=== PATIENT | female | born 1960 | race Hispanic/Latino ===

== ENCOUNTER 2016-07-14 10:53 | Observation (INO) | payer MEDICARE ==
--- NOTE | 2016-07-14 11:04 | ED PDOC ---
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 Had been observed in [facility] earlier this AM. Family also states that pt is on Fentanyl and Percocets.) - Chief Complaint Chief Complaint: Unresponsive - Onset Date: 07/14/16 Time: 10:00 Onset: Hours (1) - Timing Timing: Currently Symptomatic - Location Location: Difficult to localize - Radiation Radiation: None - Severity of pain Maximum severity:: Moderate Pain Scale:: 0 Severity Current: Moderate Pain Scale:: 0 - TPA Positive for Contraindication: Yes Reason tPA is not being Administered: No focal deficits, pt unresponsive, possible drug ingestion NIHSS Stroke Scale - How Severe is the Stroke Level of Consciousness: 1=Drowsy LOC to Questions: 2=Neither correct LOC to commands: 2=Neither correct Best Gaze: 0=Normal Visual: 0=No visual loss Facial: 0=Normal Motor Arm - Left: 0=No drift Motor Arm - Right: 0=No drift Motor Leg - Left: 0=No drift Motor Leg - Right: 0=No drift Limb Ataxia: 0=Absent Sensory: 0=Normal Best Language: 0=No aphasia Dysarthia: 1=Mild to moderate slurring Extinction & Inattention (Neglect): 0=Normal, no object Score: 6 rTPA Inclusion/Exclusion - Refusal of Treatment Patient Refused Treatment: No - Inclusion Criteria for Altepase Patient is 18 years or Older: Yes The Clinical Diagnosis of Ischemic Stroke That is Causing a Potentially Disabling Neurological Deficit: No Time of Onset is Well Established to be Less Than 270 Minute Before Treatment Would Begin: Yes Risk/Benefit Discussed With Patient/Family Member Present: Yes Past Medical History - Medical History PMH: Anxiety, Back Problems, Depression, Diabetes, HTN, Hyperlipidemia Denies: Chronic Kidney Disease - Family History Family History: States: Unknown Family Hx - Immunization History Hx Tetanus Toxoid Vaccination: No Hx Influenza Vaccination: Yes Hx Pneumococcal Vaccination: No - Home Medications Home Medications: Ambulatory Orders Medication Instructions Recorded DULoxetine [Cymbalta] 60 mg PO DAILY 09/03/15 Fenofibrate [Tricor] 135 mg PO DAILY 09/03/15 Gabapentin [Neurontin] 600 mg PO DAILY 09/03/15 MetFORMIN [glucOPHAGE] 1,000 mg PO DAILY 09/03/15 Mirtazapine [Remeron Soltab] 15 mg PO DAILY 09/03/15 Rosuvastatin Calcium 2.5 [Crestor] 2.5 mg PO BID 09/03/15 Buspirone HCl [Buspirone HCl] 15 mg PO BID 06/28/16 Celecoxib [CeleBREX] 100 mg PO BID 06/28/16 Esomeprazole Magnesium [Nexium] 40 mg PO DAILY 06/28/16 Fentanyl [Duragesic Patch] 1 patch TOP Q72 07/14/16 oxyCODONE/Acetaminophen [Percocet 2 tab PO PRN PRN 07/14/16 5/325 mg Tab] - Allergies Allergies/Adverse Reactions: Allergies Allergy/AdvReac Type Severity Reaction Status Date / Time No Known Allergies Allergy Verified 07/14/16 11:13 Review of Systems Review Of Systems: ROS cannot be obtained secondary to pt's inabilty to answer questions. Physical Exam - Physical Exam Appears: Positive for: Non-toxic, No Acute Distress Head Exam: Positive for: ATRAUMATIC, NORMAL INSPECTION, NORMOCEPHALIC Skin: Positive for: Normal Color, Warm, DRY Eye Exam: Positive for: EOMI, PERRL Neck: Positive for: Normal, Painless ROM Cardiovascular/Chest: Positive for: Regular Rate, Rhythm Respiratory: Positive for: CNT, Normal Breath Sounds Gastrointestinal/Abdominal: Positive for: Normal Exam, Bowel Sounds, Soft. Negative for: Tenderness Back: Positive for: Normal Inspection Extremity: Positive for: Normal ROM Neurologic/Psych: Negative for: Alert (lethargic, responds to painful stimuli), Motor/Sensory Deficits - Laboratory Results Result Diagrams: 07/14/16 11:21 07/14/16 11:21 Disposition - Clinical Impression Clinical Impression: Opioid overdose - Patient ED Disposition Is Patient to be Admitted: Yes - Disposition Disposition Time: 12:22 Condition: FAIR - Pt Status Changed To: Hospital Disposition Of: Observation - POA Present On Arrival: None
[2016-07-14 11:33] LABS: BASO # 0.1 K/uL (0.0-0.2); BASO % 0.5 % (0.0-2.0); EOS # 0.1 K/uL (0.0-0.7); EOS % 0.5 % (0.0-4.0); HEMATOCRIT 40.8 % (34.0-47.0); LYMPH # 2.4 K/uL (1.0-4.3); LYMPH % 14.5 % (20.0-40.0); MEAN CELL VOLUME 92.3 fl (81.0-99.0); MEAN CORPUSCULAR HGB CONC 32.5 g/dL (33.0-37.0); MEAN PLATELET VOLUME 9.3 fl (7.2-11.7); MONO # 0.9 K/uL (0.0-0.8); MONO % 5.6 % (0.0-10.0); NEUT # 13.1 K/uL (1.8-7.0); NEUT % 78.9 % (50.0-75.0); NRBC % 0.1 % (0.0-0.0); WHITE BLOOD COUNT 16.6 K/uL (4.8-10.8)
[2016-07-14 11:41] LABS: ALCOHOL SERUM < 10 mg/dl (0-10); ALKALINE PHOSPHATASE 87 U/L (38-126); ALT/SGPT 40 U/L (9-52); AST/SGOT 79 U/L (14-36); BILIRUBIN,TOTAL 0.5 mg/dl (0.2-1.3); BLOOD UREA NITROGEN 27 mg/dl (7-17); CALCIUM 9.7 mg/dL (8.4-10.2); CARBON DIOXIDE 24 mmol/L (22-30); CHLORIDE 106 mmol/L (98-107); CHOLESTEROL 228 mg/dL (0-199); GFR AFRICAN-AMERICAN 40; GLUCOSE,RANDOM 234 mg/dL (65-105); POTASSIUM 4.1 MMOL/L (3.6-5.0); SODIUM 147 mmol/l (132-148); TOTAL PROTEIN 7.5 G/DL (6.3-8.2)
--- NOTE | 2016-07-14 11:42 | CT ---
PROCEDURE: CT HEAD WITHOUT CONTRAST. HISTORY: code stroke COMPARISON: 06/28/2016 TECHNIQUE: Axial computed tomography images were obtained through the head/brain without intravenous contrast. Radiation dose: Total exam DLP = 938.35 mGy-cm. This CT exam was performed using one or more of the following dose reduction techniques: Automated exposure control, adjustment of the mA and/or kV according to patient size, and/or use of iterative reconstruction technique. FINDINGS: HEMORRHAGE: No intracranial hemorrhage. BRAIN: No mass effect or edema. No atrophy or chronic microvascular ischemic changes. VENTRICLES: Unremarkable. No hydrocephalus. CALVARIUM: Unremarkable. PARANASAL SINUSES: Chronic ethmoid and right maxillary sinusitis. Very small sphenoid retention cyst/polyp. MASTOID AIR CELLS: Unremarkable as visualized. No inflammatory changes. OTHER FINDINGS: None. IMPRESSION: No evidence of acute infarct. No intracranial hemorrhage. Chronic ethmoid and right maxillary sinusitis. Very small sphenoid retention cyst/polyp. The findings in this examination were discussed, by telephone, with Dr. Dickens at 11:37 a.m. on 07/14/2016.
[2016-07-14 11:46] LABS: PARTIAL THROMBOPLASTIN TIME 25.9 SECONDS (23.3-32.5)
--- NOTE | 2016-07-14 12:02 | RAD ---
HISTORY: unresponsive COMPARISON: 06/28/2016 FINDINGS: LUNGS: No active pulmonary disease. PLEURA: No significant pleural effusion identified, no pneumothorax apparent. CARDIOVASCULAR: Normal. OSSEOUS STRUCTURES: No significant abnormalities. VISUALIZED UPPER ABDOMEN: Normal. OTHER FINDINGS: None. IMPRESSION: No active disease.
[2016-07-14] MEDS ORDERED: Naloxone 0.4 mg/ml Inj (Adult) IVP STA (12:22)
[2016-07-14] MEDS ORDERED: Naloxone 0.4 mg/ml Inj (Adult) ONE (12:42)
--- NOTE | 2016-07-14 13:38 | CP.PCM.HP ---
History of Present Illness - History of Present Illness History of Present Illness: 56 y/o F with HTN, DM with peripheral neuropathy, GERD, Hyperlipidemia, Depression, chronic back pain admitted for opioid overdose. Found unresponsive on floor 1hr [employer] ED. Had been observed in normal state of health earlier this AM by son. Pt is on Fentanyl and Percocets as per sister. Living with her son who is a heroin user( s/p detox at [facility]), patient also has an ex partner who is a enrolled in a methadone clinic and is currently homeless butcomes to her apartment intermittently as per sister. Sister accusing pt's son of stealing patient's fentanyl patches. In the Field: found 'pulseless' and unresponsive , chest compressions, given narcan x 1 dose, regained pulse ED course: Responsive to painful stimuli, given narcan x 1, more alert and awake , answering questions, VS stable, O2 sat 98% on 100% non rebreather mask. PCP: Dr Jeff Mcadams Mgmnt: Dr. Vega (dougherty) PMHx: HTN, DM with peripheral neuropathy, GERD, Hyperlipidemia, Depression, Breast Cancer s/p right mastectomy 20 years ago Allergies: NKDA Meds: DULoxetine [Cymbalta] 60 mg PO Dicyclomine [Dicyclomine HCl] 10 mg PO Fenofibrate [Tricor] 135 mg PO DAILY Gabapentin [Neurontin] 600 mg PO DAILY MetFORMIN [glucOPHAGE] 1,000 mg PO DAILY Mirtazapine [Remeron Soltab] 15 mg PO DAILY Ondansetron [Zofran] 4 mg PO Q6H PRN #10 tab Rosuvastatin Calcium 2.5 [Crestor] 2.5 mg PO BID oxyCODONE/Acetaminophen 325 mg PO PRN PRN Percocet 5-325 mg HALF TAB] Famotidine [Pepcid] 20 mg PO BID #28 tab Naloxegol Oxalate [Movantik] 25 mg PO PSurgHx: R breast "mastectomy" 20 years ago, ingrown toenails PSHx: Smoker 1 PPD x 27 years. neg ETOH, heroin/benzo /methadone use?. Living with her son who is a heroin user( s/p detox at [facility]). Patient also has an ex partner who is a enrolled in a methadone clinic and is currently homeless butcomes to her apartment intermittently as per sister. Present on Admission - Present on Admission Any Indicators Present on Admission: No Review of Systems - Review of Systems Review of Systems: see hpi Past Patient History - Infectious Disease Hx of Infectious Diseases: None - Past Medical History & Family History Past Medical History?: Yes - Past Social History Smoking Status: 1/2 PPD - CARDIAC Hx Cardiac Disorders: Yes (HTN,HLD) - PULMONARY Hx Respiratory Disorders: No - NEUROLOGICAL Hx Neurological Disorder: No - HEENT Hx HEENT Problems: No - RENAL Hx Chronic Kidney Disease: No - ENDOCRINE/METABOLIC Hx Endocrine Disorders: Yes (DM) - HEMATOLOGICAL/ONCOLOGICAL Hx Blood Disorders: No - INTEGUMENTARY Hx Dermatological Problems: No - MUSCULOSKELETAL/RHEUMATOLOGICAL Hx Musculoskeletal Disorders: Yes (CHRONIC BACK PROB) - GASTROINTESTINAL Hx Gastrointestinal Disorders: No - GENITOURINARY/GYNECOLOGICAL Hx Genitourinary Disorders: No - PSYCHIATRIC Hx Psychophysiologic Disorder: Yes (ANX, DEP) - SURGICAL HISTORY Hx Surgeries: Yes Other/Comment: tubal ligation, lumpectomy. - ANESTHESIA Hx Anesthesia: Yes Hx Anesthesia Reactions: No Meds Allergies/Adverse Reactions: Allergies Allergy/AdvReac Type Severity Reaction Status Date / Time No Known Allergies Allergy Verified 07/14/16 11:13 Physical Exam - Constitutional Additional comments: lethargic, responsive to light touch and voice - Head Exam Head Exam: NORMOCEPHALIC - Eye Exam Eye Exam: EOMI. absent: Conjunctival injection, Periorbital swelling, Scleral icterus Additional comments: pinpoint pupils 0.5 mm, sluggish bilaterally - ENT Exam ENT Exam: Mucous Membranes Moist - Neck Exam Neck exam: Positive for: Full Rom - Respiratory Exam Respiratory Exam: Decreased Breath Sounds, Clear to Auscultation Bilateral Additional comments: taking shallow breaths due to opiate use - Cardiovascular Exam Cardiovascular Exam: +S1, +S2 - GI/Abdominal Exam GI & Abdominal Exam: Soft. absent: Distended, Firm, Guarding, Rigid, Tenderness - Extremities Exam Extremities exam: Positive for: normal inspection. Negative for: pedal edema - Neurological Exam Neurological exam: Altered Additional comments: drowsy but oriented to place, time and self - Psychiatric Exam Additional comments: oriented to place, time and self - Skin Skin Exam: Dry, Intact, Pallor Results - Vital Signs Recent Vital Signs: Last Vital Signs Temp 98.5 F 07/14/16 11:36 Pulse 104 H 07/14/16 13:17 Resp 20 07/14/16 13:17 BP 123/83 07/14/16 13:17 Pulse Ox 99 07/14/16 13:16 - Labs Result Diagrams: 07/14/16 11:21 07/14/16 11:21 Labs: Laboratory Results - last 24 hr 07/14/16 13:00 Urine Opiates Screen Positive H Urine Methadone Screen Negative Ur Barbiturates Screen Negative Ur Phencyclidine Scrn Negative Ur Amphetamines Screen Negative U Benzodiazepines Scrn Positive H U Oth Cocaine Metabols Negative U Cannabinoids Screen Negative Assessment & Plan - Assessment and Plan (Free Text) Plan: 56 y/o F with DM with peripheral neuropathy, GERD, Hyperlipidemia, Depression, chronic back pain admitted for opioid overdose. Found unresponsive on floor 1hr [employer] ED. Had been observed in normal state of health earlier this AM by son. Opioid Overdose In the Field: found 'pulseless' and unresponsive , chest compressions, given narcan x 1 dose, regained pulse ED course: Responsive to painful stimuli, given narcan x 1, more alert and awake , answering questions, VS stable, O2 sat 98% on 100% non rebreather mask. 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
[2016-07-14] MEDS: Dextrose 5%/0.45% NS 1,000 ML IV SCH ×2 (14:46→22:00)
[2016-07-14] MEDS: Insulin Lispro (humaLOG) 100 Units/ml Inj SC SCH (17:25)
[2016-07-15 04:52] LABS: HEMATOCRIT 38.7 % (34.0-47.0); MEAN CELL VOLUME 91.9 fl (81.0-99.0); MEAN CORPUSCULAR HEMOGLOBIN 29.4 pg (27.0-31.0); RED CELL DISTRIBUTION WIDTH 14.4 % (11.5-14.5)
[2016-07-15 05:17] LABS: ALKALINE PHOSPHATASE 67 U/L (38-126); ALT/SGPT 27 U/L (9-52); AST/SGOT 48 U/L (14-36); BILIRUBIN,TOTAL 0.8 mg/dl (0.2-1.3); BLOOD UREA NITROGEN 13 mg/dl (7-17); CALCIUM 8.2 mg/dL (8.4-10.2); CARBON DIOXIDE 24 mmol/L (22-30); CHLORIDE 103 mmol/L (98-107); GFR AFRICAN-AMERICAN > 60; POTASSIUM 3.6 MMOL/L (3.6-5.0); SODIUM 139 mmol/l (132-148); TOTAL PROTEIN 6.2 G/DL (6.3-8.2)
[2016-07-15 05:21] LABS: ALB/GLOB RATIO 1.1 (1.0-2.1); GLUCOSE,RANDOM 619 mg/dL (65-105)
[2016-07-15] MEDS ORDERED: Sodium Chloride 0.9% 1,000 ML IV SCH (06:30)
[2016-07-15 06:32] LABS: BLOOD UREA NITROGEN 14 mg/dl (7-17); CALCIUM 9.5 mg/dL (8.4-10.2); CARBON DIOXIDE 24 mmol/L (22-30); CHLORIDE 108 mmol/L (98-107); GFR AFRICAN-AMERICAN > 60; GLUCOSE,RANDOM 225 mg/dL (65-105); POTASSIUM 3.9 MMOL/L (3.6-5.0); SODIUM 146 mmol/l (132-148)
[2016-07-15 07:37] LABS: BASO # 0.1 K/uL (0.0-0.2); BASO % 0.6 % (0.0-2.0); EOS # 0.1 K/uL (0.0-0.7); EOS % 0.4 % (0.0-4.0); HEMATOCRIT 40.4 % (34.0-47.0); LYMPH # 1.9 K/uL (1.0-4.3); LYMPH % 15.2 % (20.0-40.0); MEAN CELL VOLUME 90.7 fl (81.0-99.0); MEAN CORPUSCULAR HEMOGLOBIN 30.1 pg (27.0-31.0); MEAN CORPUSCULAR HGB CONC 33.2 g/dL (33.0-37.0); MEAN PLATELET VOLUME 10.4 fl (7.2-11.7); MONO # 0.7 K/uL (0.0-0.8); MONO % 5.9 % (0.0-10.0); NEUT # 9.7 K/uL (1.8-7.0); NEUT % 77.9 % (50.0-75.0); NRBC % 0.1 % (0.0-0.0); RED CELL DISTRIBUTION WIDTH 14.7 % (11.5-14.5); WHITE BLOOD COUNT 12.5 K/uL (4.8-10.8)
[2016-07-15] MEDS: Insulin Lispro (humaLOG) 100 Units/ml Inj SC SCH (08:41)
--- NOTE | 2016-07-15 08:42 | CARD ---
APPROVED REPORT EKG Measurement Heart [id number] <Conclusion> Sinus tachycardia Otherwise normal ECG
[2016-07-15 08:57] VITALS: TEMP 98.4
[2016-07-15 11:00] VITALS: BP 151/91; PULSE 110; RESP 24; O2SAT 93
--- NOTE | 2016-07-15 13:49 | CP.PCM.DIS ---
<John Christopher - Last Filed: 07/15/16 13:42> Provider - Provider Date of Admission: 07/14/16 12:20 Attending physician: Chico Reinoso MD Time Spent in preparation of Discharge (in minutes): 30 Diagnosis - Discharge Diagnosis (1) Opioid overdose Status: Acute Hospital Course - Lab Results Lab Results: Most Recent Lab Values WBC 12.5 K/uL (4.8-10.8) H 07/15/16 05:24 RBC 4.45 Mil/uL (3.80-5.20) 07/15/16 05:24 Hgb 13.4 g/dL (12.0-16.0) 07/15/16 05:24 Hct 40.4 % (34.0-47.0) 07/15/16 05:24 MCV 90.7 fl (81.0-99.0) 07/15/16 05:24 MCH 30.1 pg (27.0-31.0) 07/15/16 05:24 MCHC 33.2 g/dL (33.0-37.0) 07/15/16 05:24 RDW 14.7 % (11.5-14.5) H 07/15/16 05:24 Plt Count 177 K/uL (130-400) 07/15/16 05:24 MPV 10.4 fl (7.2-11.7) 07/15/16 05:24 Neut % (Auto) 77.9 % (50.0-75.0) H 07/15/16 05:24 Lymph % (Auto) 15.2 % (20.0-40.0) L 07/15/16 05:24 [place] % (Auto) 5.9 % (0.0-10.0) 07/15/16 05:24 Eos % (Auto) 0.4 % (0.0-4.0) 07/15/16 05:24 Baso % (Auto) 0.6 % (0.0-2.0) 07/15/16 05:24 Neut # 9.7 K/uL (1.8-7.0) H 07/15/16 05:24 Lymph # 1.9 K/uL (1.0-4.3) 07/15/16 05:24 [place] # 0.7 K/uL (0.0-0.8) 07/15/16 05:24 Eos # 0.1 K/uL (0.0-0.7) 07/15/16 05:24 Baso # 0.1 K/uL (0.0-0.2) 07/15/16 05:24 PT 11.5 SECONDS (9.6-11.2) H 07/14/16 11:21 INR 1.11 (0.92-1.08) H 07/14/16 11:21 APTT 25.9 SECONDS (23.3-32.5) 07/14/16 11:21 Sodium 146 mmol/l (132-148) 07/15/16 05:24 Potassium 3.9 MMOL/L (3.6-5.0) 07/15/16 05:24 Chloride 108 mmol/L (98-107) H 07/15/16 05:24 Carbon Dioxide 24 mmol/L (22-30) 07/15/16 05:24 Anion Gap 18 (10-20) 07/15/16 05:24 BUN 14 mg/dl (7-17) 07/15/16 05:24 Creatinine 0.8 mg/dL (0.7-1.2) 07/15/16 05:24 Est GFR ( Amer) > 60 07/15/16 05:24 Est GFR (Non-Af Amer) > 60 07/15/16 05:24 POC Glucose (mg/dL) 179 mg/dL (65-110) H 07/15/16 01:51 Random Glucose 225 mg/dL (65-105) H 07/15/16 05:24 Hemoglobin A1c 9.1 % (4.2-6.5) H 07/14/16 11:21 Calcium 9.5 mg/dL (8.4-10.2) 07/15/16 05:24 Total Bilirubin 0.8 mg/dl (0.2-1.3) 07/15/16 04:35 AST 48 U/L (14-36) H D 07/15/16 04:35 ALT 27 U/L (9-52) 07/15/16 04:35 Alkaline Phosphatase 67 U/L (38-126) 07/15/16 04:35 Troponin I 0.0160 ng/mL (0.00-0.120) 07/15/16 05:24 Total Protein 6.2 G/DL (6.3-8.2) L 07/15/16 04:35 Albumin 3.2 g/dL (3.5-5.0) L 07/15/16 04:35 Globulin 3.0 gm/dL (2.2-3.9) 07/15/16 04:35 Albumin/Globulin Ratio 1.1 (1.0-2.1) 07/15/16 04:35 Triglycerides 519 mg/DL (0-149) H 07/14/16 11:21 Cholesterol 228 mg/dL (0-199) H 07/14/16 11:21 LDL Cholesterol Direct 98 mg/dL (0-129) 07/14/16 11:21 HDL Cholesterol 30 MG/DL (30-70) 07/14/16 11:21 Salicylates < 1.0 mg/dl 07/14/16 14:00 Urine Opiates Screen Positive (NEGATIVE) H 07/14/16 13:00 Urine Methadone Screen Negative (NEGATIVE) 07/14/16 13:00 Acetaminophen < 10.0 ug/ml (10.0-30.0) L 07/14/16 14:00 Ur Barbiturates Screen Negative (NEGATIVE) 07/14/16 13:00 Ur Phencyclidine Scrn Negative (NEGATIVE) 07/14/16 13:00 Ur Amphetamines Screen Negative (NEGATIVE) 07/14/16 13:00 U Benzodiazepines Scrn Positive (NEGATIVE) H 07/14/16 13:00 U Oth Cocaine Metabols Negative (NEGATIVE) 07/14/16 13:00 U Cannabinoids Screen Negative (NEGATIVE) 07/14/16 13:00 Alcohol, Quantitative < 10 mg/dl (0-10) 07/14/16 11:21 Blood Type B POSITIVE 07/14/16 11:21 Antibody Screen Negative 07/14/16 11:21 BBK History Checked Patient has bt 07/14/16 11:21 - Hospital Course Hospital Course: The patient is a 56 y/o woman with HTN, DM with peripheral neuropathy, GERD, Hyperlipidemia, Depression, chronic back pain admitted for opioid overdose. 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 Had been observed in normal state of health earlier this AM by son. Pt is on Fentanyl and Percocets as per sister. Living with her son who is a heroin user( s/p detox at [facility]), patient also has an ex partner who is a enrolled in a methadone clinic and is currently homeless butcomes to her apartment intermittently as per sister. In the Field: found 'pulseless' and unresponsive , chest compressions, given narcan x 1 dose, regained pulse ED course: Responsive to painful stimuli, given narcan x 1, more alert and awake , answering questions, VS stable, O2 sat 98% on 100% non rebreather mask. Patient drug screen was positive for opioids and benzodiazepines. Patient given home medications except oipioids. Patient had Head CT and CXR which were normal. EKG showed sinus tachycardia with repeat EKG being normal. Troponins were negative and rest of labs were normal for her baseline. Blood sugar was found to be in 600s in price economist but was due to blood drawn above IV where patient was receiving D5, repeat glucose was 200s. Patient was AAOx3 upon examination and clinically improved. Patient has been seen, examined,a nd deemed medically fit with no contraindication for discharge home. Patient is to follow up with Dr. Reinoso and Dr. Vega. - Date & Time of H&P Date of H&P: 07/14/16 Time of H&P: 13:37 Discharge Exam - Head Exam Head Exam: ATRAUMATIC, NORMOCEPHALIC - Eye Exam Eye Exam: EOMI Pupil Exam: PERRL - ENT Exam ENT Exam: Mucous Membranes Moist - Respiratory Exam Respiratory Exam: Chest Wall Tenderness, Clear to PA & Lateral. absent: Accessory Muscle Use, Decreased Breath Sounds, Prolonged Expiratory Phase, Rales , Rhonchi, Wheezes, Respiratory Distress, Stridor Additional comments: s/p chest compressions - Cardiovascular Exam Cardiovascular Exam: REGULAR RHYTHM, RRR. absent: Tachycardia - GI/Abdominal Exam GI & Abdominal Exam: Normal Bowel Sounds, Soft. absent: Distended, Tenderness - Neurological Exam Neurological exam: Alert, Normal Gait, Oriented x3 - Skin Skin Exam: Dry, Intact, Normal Color, Warm Discharge Plan - Follow Up Plan Condition: FAIR Disposition: HOME/ ROUTINE Referrals: Chico Reinoso MD [Staff Provider] - Walker Vega MD [Medical Doctor] - <Chico Reinoso - Last Filed: 07/16/16 07:00> Provider - Provider Date of Admission: 07/14/16 12:20 Attending physician: Chico Reinoso MD [facility] Course - Lab Results Lab Results: Most Recent Lab Values WBC 12.5 K/uL (4.8-10.8) H 07/15/16 05:24 RBC 4.45 Mil/uL (3.80-5.20) 07/15/16 05:24 Hgb 13.4 g/dL (12.0-16.0) 07/15/16 05:24 Hct 40.4 % (34.0-47.0) 07/15/16 05:24 MCV 90.7 fl (81.0-99.0) 07/15/16 05:24 MCH 30.1 pg (27.0-31.0) 07/15/16 05:24 MCHC 33.2 g/dL (33.0-37.0) 07/15/16 05:24 RDW 14.7 % (11.5-14.5) H 07/15/16 05:24 Plt Count 177 K/uL (130-400) 07/15/16 05:24 MPV 10.4 fl (7.2-11.7) 07/15/16 05:24 Neut % (Auto) 77.9 % (50.0-75.0) H 07/15/16 05:24 Lymph % (Auto) 15.2 % (20.0-40.0) L 07/15/16 05:24 [place] % (Auto) 5.9 % (0.0-10.0) 07/15/16 05:24 Eos % (Auto) 0.4 % (0.0-4.0) 07/15/16 05:24 Baso % (Auto) 0.6 % (0.0-2.0) 07/15/16 05:24 Neut # 9.7 K/uL (1.8-7.0) H 07/15/16 05:24 Lymph # 1.9 K/uL (1.0-4.3) 07/15/16 05:24 [place] # 0.7 K/uL (0.0-0.8) 07/15/16 05:24 Eos # 0.1 K/uL (0.0-0.7) 07/15/16 05:24 Baso # 0.1 K/uL (0.0-0.2) 07/15/16 05:24 PT 11.5 SECONDS (9.6-11.2) H 07/14/16 11:21 INR 1.11 (0.92-1.08) H 07/14/16 11:21 APTT 25.9 SECONDS (23.3-32.5) 07/14/16 11:21 Sodium 146 mmol/l (132-148) 07/15/16 05:24 Potassium 3.9 MMOL/L (3.6-5.0) 07/15/16 05:24 Chloride 108 mmol/L (98-107) H 07/15/16 05:24 Carbon Dioxide 24 mmol/L (22-30) 07/15/16 05:24 Anion Gap 18 (10-20) 07/15/16 05:24 BUN 14 mg/dl (7-17) 07/15/16 05:24 Creatinine 0.8 mg/dL (0.7-1.2) 07/15/16 05:24 Est GFR ( Amer) > 60 07/15/16 05:24 Est GFR (Non-Af Amer) > 60 07/15/16 05:24 POC Glucose (mg/dL) 179 mg/dL (65-110) H 07/15/16 01:51 Random Glucose 225 mg/dL (65-105) H 07/15/16 05:24 Hemoglobin A1c 9.1 % (4.2-6.5) H 07/14/16 11:21 Calcium 9.5 mg/dL (8.4-10.2) 07/15/16 05:24 Total Bilirubin 0.8 mg/dl (0.2-1.3) 07/15/16 04:35 AST 48 U/L (14-36) H D 07/15/16 04:35 ALT 27 U/L (9-52) 07/15/16 04:35 Alkaline Phosphatase 67 U/L (38-126) 07/15/16 04:35 Troponin I 0.0160 ng/mL (0.00-0.120) 07/15/16 05:24 Total Protein 6.2 G/DL (6.3-8.2) L 07/15/16 04:35 Albumin 3.2 g/dL (3.5-5.0) L 07/15/16 04:35 Globulin 3.0 gm/dL (2.2-3.9) 07/15/16 04:35 Albumin/Globulin Ratio 1.1 (1.0-2.1) 07/15/16 04:35 Triglycerides 519 mg/DL (0-149) H 07/14/16 11:21 Cholesterol 228 mg/dL (0-199) H 07/14/16 11:21 LDL Cholesterol Direct 98 mg/dL (0-129) 07/14/16 11:21 HDL Cholesterol 30 MG/DL (30-70) 07/14/16 11:21 Salicylates < 1.0 mg/dl 07/14/16 14:00 Urine Opiates Screen Positive (NEGATIVE) H 07/14/16 13:00 Urine Methadone Screen Negative (NEGATIVE) 07/14/16 13:00 Acetaminophen < 10.0 ug/ml (10.0-30.0) L 07/14/16 14:00 Ur Barbiturates Screen Negative (NEGATIVE) 07/14/16 13:00 Ur Phencyclidine Scrn Negative (NEGATIVE) 07/14/16 13:00 Ur Amphetamines Screen Negative (NEGATIVE) 07/14/16 13:00 U Benzodiazepines Scrn Positive (NEGATIVE) H 07/14/16 13:00 U Oth Cocaine Metabols Negative (NEGATIVE) 07/14/16 13:00 U Cannabinoids Screen Negative (NEGATIVE) 07/14/16 13:00 Alcohol, Quantitative < 10 mg/dl (0-10) 07/14/16 11:21 Blood Type B POSITIVE 07/14/16 11:21 Antibody Screen Negative 07/14/16 11:21 BBK History Checked Patient has bt 07/14/16 11:21 Attending/Attestation - Attestation I have personally seen and examined this patient.: Yes I have fully participated in the care of the patient.: Yes I have reviewed all pertinent clinical information, including history, physical exam and plan: Yes
--- NOTE | 2016-07-15 16:21 | CARD ---
APPROVED REPORT EKG Measurement Heart [id number] <Conclusion> Normal sinus rhythm Normal ECG
== END 2016-07-15 13:00 | disposition home or self-care (01) ==
LOC: H.ER 10:53 → H.ERHOLD 12:20 → H.ICU/CCU 13:35
PROVIDERS: ADMIT Family Medicine; ATTEND Family Medicine
DX: T40.2X1A Poisoning by other opioids, accidental (unintentional), initial encounter (principal); Y92.9 Unspecified place or not applicable; E11.42 Type 2 diabetes mellitus with diabetic polyneuropathy; E78.5 Hyperlipidemia, unspecified; F32.9 Major depressive disorder, single episode, unspecified; I10 Essential (primary) hypertension; K21.9 Gastro-esophageal reflux disease without esophagitis; Z59.0 Homelessness; Z85.3 Personal history of malignant neoplasm of breast; G89.29 Other chronic pain; M54.9 Dorsalgia, unspecified; F17.210 Nicotine dependence, cigarettes, uncomplicated
CPT/HCPCS: 70450; 71010; 80048; 80053; 80061; 82948; 83036; 84484; 85025; 85027; 85610; 85730; 86850; 86900; 87081; 93005; 96374; 99285; C9113; G0378; G0480; J1885; J2310; J2405; J7040; J7042

== ENCOUNTER 2016-09-27 13:00 | Emergency (ER) | payer MEDICARE ==
[2016-09-27 13:09] VITALS: BP 111/69; PULSE 115; RESP 20; TEMP 98; O2SAT 98
[2016-09-27] MEDS ORDERED: Sodium Chloride 0.9% 1,000 ML IV STA (13:43)
--- NOTE | 2016-09-27 13:46 | ED PDOC ---
Upper Extremity Pain/Injury Time Seen by Provider: 09/27/16 13:42 Chief Complaint (Nursing): Upper Extremity Problem/Injury Chief Complaint (Provider): right shoulder pain History Per: Patient Additional Complaint(s): 56-year-old female presents to emergency Department with pain to right shoulder that started 5 days ago. Patient denies any trauma or injury. She states pain radiates into the right chest wall on occasion but she denies any shortness of breath or dyspnea on exertion. Patient had lumpectomy from right breast 25 years ago but denies history of chronic pain since that procedure. She denies fever or chills, no associated coughing. Patient has history of chronic knee and back pain and takes fentanyl patch 100 g every 3 days and Percocet daily but she states this has not helped her pain. She has also tried ibuprofen but this has not helped. Past Medical History Reviewed: Historical Data, Nursing Documentation, Vital Signs Vital Signs: Last Vital Signs Temp 98 F 09/27/16 13:07 Pulse 115 H 09/27/16 13:07 Resp 20 09/27/16 13:07 BP 111/69 09/27/16 13:07 Pulse Ox 98 09/27/16 13:07 - Medical History PMH: Anxiety, Back Problems, Depression, Diabetes, Emphysema, HTN, Hypercholesterolemia, Hyperlipidemia - Surgical History Other surgeries: right lumpectomy - Family History Family History: States: No Known Family Hx - Living Arrangements Living Arrangements: With Family - Social History Current smoker - smoking cessation education provided: Yes Alcohol: None Drugs: Denies - Home Medications Home Medications: Ambulatory Orders Medication Instructions Recorded DULoxetine [Cymbalta] 60 mg PO DAILY 09/03/15 Fenofibrate [Tricor] 135 mg PO DAILY 09/03/15 Gabapentin [Neurontin] 600 mg PO DAILY 09/03/15 MetFORMIN [glucoPHAGE] 1,000 mg PO DAILY 09/03/15 Mirtazapine [Remeron] 15 mg PO DAILY 09/03/15 Rosuvastatin Calcium 2.5 [Crestor] 2.5 mg PO BID 09/03/15 Buspirone HCl 15 mg PO BID 06/28/16 Celecoxib [celeBREX] 100 mg PO BID 06/28/16 Esomeprazole Magnesium [Nexium] 40 mg PO DAILY 06/28/16 Ibuprofen [Motrin Tab] 800 mg PO Q8 PRN #30 tab 09/27/16 Levofloxacin [Levaquin] 500 mg PO DAILY #7 tablet 09/27/16 Lidocaine 5% [Lidoderm] 1 ea TD DAILY #30 patch 09/27/16 Prednisone 50 mg PO DAILY #5 tablet 09/27/16 - Allergies Allergies/Adverse Reactions: Allergies Allergy/AdvReac Type Severity Reaction Status Date / Time No Known Allergies Allergy Verified 07/14/16 11:13 Review of Systems ROS Statement: Except As Marked, All Systems Reviewed And Found Negative Constitutional: Negative for: Fever, Chills Cardiovascular: Positive for: Chest Pain (right side, radiating from right shoulder) Respiratory: Negative for: Cough, Shortness of Breath, SOB with Exertion Gastrointestinal: Negative for: Nausea, Vomiting Neurological: Negative for: Weakness, Numbness, Headache, Dizziness Physical Exam - Reviewed Nursing Documentation Reviewed: Yes Vital Signs Reviewed: Yes - Physical Exam Appears: Positive for: Well, Non-toxic, No Acute Distress Head Exam: Positive for: ATRAUMATIC, NORMAL INSPECTION, NORMOCEPHALIC Skin: Negative for: Rash Eye Exam: Positive for: Normal appearance Neck: Positive for: Normal, Painless ROM Cardiovascular/Chest: Positive for: Regular Rate, Rhythm Respiratory: Positive for: Normal Breath Sounds. Negative for: Respiratory Distress Back: Negative for: Vertebral Tenderness Extremity: Positive for: Other (Diffuse tenderness right shoulder region with decreased range of motion, full range of motion of the right elbow, wrist and all digits right hand, strong right handgrip, normal capillary refill, no unilateral swelling noted to the right upper extremity) Neurologic/Psych: Positive for: Alert, Oriented - Laboratory Results Result Diagrams: 09/27/16 13:54 09/27/16 13:54 - ECG Interpretation Of ECG: Sinus tach 105 bpm, no acute finding, reviewed by PA and ED attending. O2 Sat by Pulse Oximetry: 98 Pulse Ox Interpretation: Normal - Other Rad Right shoulder x-ray X-Ray: Interpreted by Me, Viewed By Me X-Ray Interpretation: no fx, no dis CXR X-Ray: Interpreted by Me, Viewed By Me X-Ray Interpretation: see below Medical Decision Making Medical Decision Makin56 year old with right arm pain for 5 days, no history of trauma. Plan: CBC CMP Trop CXR R shoulder x-ray IV toradol IV solumedrol IVF EKG CXR: IMPRESSION: Subtle patchy nodular opacities at the lung bases may infiltrates or reflect artifactual appearance due to confluence of shadows ; pulmonary nodules cannot be entirely excluded. Correlate clinically. CT of the chest may be considered for further evaluation if indicated. Cardiomegaly. Patient states that shoulder pain is markedly improved after meds given in ED. Patient now able to lift right arm over her head which she could not do before. Patient is aware of all diagnostic test results, all questions answered. Patient given prescriptions for prednisone, Motrin and Lidoderm patch. Patient also given prescription for Levaquin to cover possible pneumonia according to above chest x-ray report. Copy of the chest x-ray report given to patient to bring to primary doctor for further evaluation. Patient was also instructed to follow up with her pain management physician Disposition - Clinical Impression Clinical Impression: Shoulder pain, Pneumonia - Patient ED Disposition Is Patient to be Admitted: No Counseled Patient/Family Regarding: Studies Performed, Diagnosis, Need For Followup, Rx Given - Disposition Referrals: Chico Reinoso MD [Staff Provider] - Disposition: Routine/Home Disposition Time: 15:25 Condition: IMPROVED Additional Instructions: Take prescription medications as directed. While taking prednisone monitor glucose levels at home and if glucose is higher than normal, take extra dose of metformin on those days. Ice right shoulder as much as possible. Follow-up next week with primary doctor, breathing chest x-ray report with you during follow-up visit to discuss with primary doctor possible need for further imaging. Return to emergency department if acutely worse at any time. Prescriptions: Ibuprofen [Motrin Tab] 800 mg PO Q8 PRN #30 tab PRN Reason: Pain, Moderate (4-7) Levofloxacin [Levaquin] 500 mg PO DAILY #7 tablet Lidocaine 5% [Lidoderm] 1 ea TD DAILY #30 patch Prednisone 50 mg PO DAILY #5 tablet Instructions: Community Acquired Pneumonia (ED), Shoulder Pain (ED) Results - Lab Results Lab Results: 09/27/16 09/27/16 13:54 13:54 WBC 10.4 RBC 5.02 Hgb 14.3 Hct 44.0 MCV 87.7 D MCH 28.4 MCHC 32.4 L RDW 15.8 H Plt Count 234 MPV 8.9 Neut % (Auto) 56.0 Lymph % (Auto) 35.8 Harrison % (Auto) 4.5 Eos % (Auto) 2.5 Baso % (Auto) 1.2 Neut # 5.8 Lymph # 3.7 Harrison # 0.5 Eos # 0.3 Baso # 0.1 Sodium 143 Potassium 4.5 Chloride 108 H Carbon Dioxide 23 Anion Gap 17 BUN 18 H Creatinine 1.0 Est GFR ( Amer) > 60 Est GFR (Non-Af Amer) 57 Random Glucose 130 H Calcium 9.6 Total Bilirubin 0.4 AST 19 ALT 16 Alkaline Phosphatase 87 Troponin I < 0.0120 Total Protein 8.1 Albumin 4.4 Globulin 3.7 Albumin/Globulin Ratio 1.2
[2016-09-27 14:11] LABS: BASO # 0.1 K/uL (0.0-0.2); BASO % 1.2 % (0.0-2.0); EOS # 0.3 K/uL (0.0-0.7); EOS % 2.5 % (0.0-4.0); LYMPH # 3.7 K/uL (1.0-4.3); LYMPH % 35.8 % (20.0-40.0); MEAN CELL VOLUME 87.7 fl (81.0-99.0); MEAN CORPUSCULAR HEMOGLOBIN 28.4 pg (27.0-31.0); MEAN CORPUSCULAR HGB CONC 32.4 g/dL (33.0-37.0); MEAN PLATELET VOLUME 8.9 fl (7.2-11.7); MONO # 0.5 K/uL (0.0-0.8); MONO % 4.5 % (0.0-10.0); NEUT # 5.8 K/uL (1.8-7.0); NRBC % 0.1 % (0.0-0.0); RED CELL DISTRIBUTION WIDTH 15.8 % (11.5-14.5); WHITE BLOOD COUNT 10.4 K/uL (4.8-10.8)
[2016-09-27 14:14] LABS: ALB/GLOB RATIO 1.2 (1.0-2.1); ALKALINE PHOSPHATASE 87 U/L (38-126); ALT/SGPT 16 U/L (9-52); AST/SGOT 19 U/L (14-36); BILIRUBIN,TOTAL 0.4 mg/dl (0.2-1.3); BLOOD UREA NITROGEN 18 mg/dl (7-17); CALCIUM 9.6 mg/dL (8.4-10.2); CARBON DIOXIDE 23 mmol/L (22-30); CHLORIDE 108 mmol/L (98-107); GFR AFRICAN-AMERICAN > 60; GLUCOSE,RANDOM 130 mg/dL (65-105); POTASSIUM 4.5 MMOL/L (3.6-5.0); SODIUM 143 mmol/l (132-148); TOTAL PROTEIN 8.1 G/DL (6.3-8.2)
--- NOTE | 2016-09-27 15:08 | RAD ---
PROCEDURE: Radiographs of the Right Shoulder HISTORY: pain for 5 days COMPARISON: None available FINDINGS: BONES: No acute displaced fracture. The distal clavicle and underlying ribs appear intact. JOINTS: No acute dislocation. SOFT TISSUES: Soft tissues appear unremarkable. Right axillary clips. IMPRESSION: No acute displaced fracture or dislocation evident. If symptoms persist or if there is continued clinical concern, x-ray follow-up in 7-10 days should be considered.
--- NOTE | 2016-09-27 15:11 | RAD ---
HISTORY: pain COMPARISON: Chest x-ray performed 07/14/16 TECHNIQUE: Chest PA and lateral FINDINGS: Examination limited by habitus. LUNGS: No focal consolidation. Biapical pleural thickening. Subtle patchy nodular opacities at the lung bases may infiltrates or reflect artifactual appearance due to confluence of shadows ; pulmonary nodules cannot be entirely excluded. Please note that chest x-ray has limited sensitivity for the detection of pulmonary masses. PLEURA: No significant pleural effusion identified. No definite pneumothorax . CARDIOVASCULAR: Cardiomegaly. OSSEOUS STRUCTURES: Degenerative changes. VISUALIZED UPPER ABDOMEN: Unremarkable. OTHER FINDINGS: None. IMPRESSION: Subtle patchy nodular opacities at the lung bases may infiltrates or reflect artifactual appearance due to confluence of shadows ; pulmonary nodules cannot be entirely excluded. Correlate clinically. CT of the chest may be considered for further evaluation if indicated. Cardiomegaly.
--- NOTE | 2016-09-27 17:41 | CARD ---
APPROVED REPORT EKG Measurement Heart [id number] <Conclusion> Sinus tachycardia Otherwise normal ECG
== END 2016-09-27 15:48 | disposition home or self-care (01) ==
LOC: H.ER 13:00
DX: J18.9 Pneumonia, unspecified organism (principal); M25.511 Pain in right shoulder; E78.00 Pure hypercholesterolemia, unspecified; E11.9 Type 2 diabetes mellitus without complications; I10 Essential (primary) hypertension
CPT/HCPCS: 71020; 73030; 80053; 84484; 85025; 93005; 96361; 96374; 96375; 99282; J1885; J2930; J7040

== ENCOUNTER 2017-03-31 14:04 | Emergency (ER) | payer MEDICARE ==
[2017-03-31] MEDS ORDERED: Morphine 4 MG/ML VIAL ONE ×3 (15:00→17:36)
--- NOTE | 2017-03-31 16:08 | CT ---
PROCEDURE: CT Cervical Spine without contrast HISTORY: Left arm pain COMPARISON: None available. TECHNIQUE: Axial computed tomography images were obtained of the cervical spine without the use of intravenous contrast. Coronal and sagittal reformatted images were created and reviewed. Radiation dose: Total exam DLP = 573.4 mGy-cm. This CT exam was performed using one or more of the following dose reduction techniques: Automated exposure control, adjustment of the mA and/or kV according to patient size, and/or use of iterative reconstruction technique. FINDINGS: VERTEBRAE: No fracture. Normal alignment. No destructive bony lesion. DISCS/SPINAL CANAL/NEURAL FORAMINA: Multilevel disc space narrowing with osteophytic ridging, uncal vertebral hypertrophy and disc osteophyte complexes causing lower cervical central canal narrowing. PARASPINAL SOFT TISSUES: Unremarkable. OTHER FINDINGS: Nonspecific patchy bilateral upper lobe opacities. IMPRESSION: Degenerative changes of the cervical spine. Nonspecific patchy bilateral upper lobe opacities may be infectious/ inflammatory in etiology among other considerations. Clinical correlation is recommended. Three month CT follow-up can be obtained to assess for resolution/ stability.
[2017-03-31] MEDS ORDERED: Morphine 4 MG/ML VIAL IVP ONE (17:28)
[2017-03-31 17:34] VITALS: BP 138/68; PULSE 82; RESP 18; TEMP 98.6; O2SAT 99
--- NOTE | 2017-03-31 17:39 | ED PDOC ---
Upper Extremity Pain/Injury Time Seen by Provider: 03/31/17 14:30 Chief Complaint (Nursing): Upper Extremity Problem/Injury Chief Complaint (Provider): Upper Extremity Problem/Injury History Per: Patient History/Exam Limitations: no limitations Onset/Duration Of Symptoms: Days (x2 ) Current Symptoms Are (Timing): Still Present Additional Complaint(s): 56 y/o female with a past medical history of chronic back pain who presents to the emergency department with a complaint of left-sided arm pain with numbness and tingling x2 days. Patient states pain was severe prior to arrival and worsens when she is moving her left shoulder or elevating left arm. Reports she has been taking Advil for the past 2 days without relief of symptoms. Patient is currently taking Fentanyl and Percocet on a daily basis due to history of chronic back pain and is on pain management with Dr. Eduardo STAUFFER in [place], [place]. Denies chest pain, neck pain, fever, or headache. PMD: Dr. Chico Reinoso MD Past Medical History Reviewed: Historical Data, Nursing Documentation, Vital Signs Vital Signs: Last Vital Signs Temp 98.6 F 03/31/17 17:33 Pulse 82 03/31/17 17:33 Resp 18 03/31/17 17:33 BP 138/68 03/31/17 17:33 Pulse Ox 99 03/31/17 17:33 - Medical History PMH: Anxiety, Back Problems, Depression, Diabetes, Emphysema, HTN, Hypercholesterolemia, Hyperlipidemia - Surgical History Other surgeries: Breast lumpectomy, tubal ligation - Family History Family History: States: No Known Family Hx - Home Medications Home Medications: Ambulatory Orders Medication Instructions Recorded DULoxetine [Cymbalta] 60 mg PO DAILY 09/03/15 Fenofibrate [Tricor] 135 mg PO DAILY 09/03/15 Gabapentin [Neurontin] 600 mg PO DAILY 09/03/15 MetFORMIN [glucoPHAGE] 1,000 mg PO DAILY 09/03/15 Mirtazapine [Remeron] 15 mg PO DAILY 09/03/15 Rosuvastatin Calcium 2.5 [Crestor] 2.5 mg PO BID 09/03/15 Buspirone HCl 15 mg PO BID 06/28/16 Celecoxib [celeBREX] 100 mg PO BID 06/28/16 Esomeprazole Magnesium [Nexium] 40 mg PO DAILY 06/28/16 Ibuprofen [Motrin Tab] 800 mg PO Q8 PRN #30 tab 09/27/16 Levofloxacin [Levaquin] 500 mg PO DAILY #7 tablet 09/27/16 Lidocaine 5% [Lidoderm] 1 ea TD DAILY #30 patch 09/27/16 Prednisone 50 mg PO DAILY #5 tablet 09/27/16 - Allergies Allergies/Adverse Reactions: Allergies Allergy/AdvReac Type Severity Reaction Status Date / Time No Known Allergies Allergy Verified 07/14/16 11:13 Review of Systems ROS Statement: Except As Marked, All Systems Reviewed And Found Negative (As per HPI, otherwise negative) Constitutional: Negative for: Fever Cardiovascular: Negative for: Chest Pain Musculoskeletal: Positive for: Shoulder Pain (Left), Arm Pain (Left). Negative for: Neck Pain Neurological: Positive for: Numbness (and tingling of the left arm). Negative for: Headache Physical Exam - Reviewed Nursing Documentation Reviewed: Yes Vital Signs Reviewed: Yes - Physical Exam Appears: Positive for: Non-toxic, Uncomfortable Head Exam: Positive for: ATRAUMATIC, NORMAL INSPECTION, NORMOCEPHALIC Skin: Positive for: Normal Color, Warm, Dry Neck: Positive for: Normal, Painless ROM, Supple Cardiovascular/Chest: Positive for: Regular Rate, Rhythm. Negative for: Murmur Respiratory: Positive for: Normal Breath Sounds. Negative for: Accessory Muscle Use, Respiratory Distress Gastrointestinal/Abdominal: Positive for: Normal Exam, Soft. Negative for: Tenderness Extremity: Positive for: Tenderness (Left arm), Other (Limited range of motion when patient raises left shoulder. ). Negative for: Normal ROM Neurologic/Psych: Positive for: Alert, Oriented (x3) - ECG O2 Sat by Pulse Oximetry: 99 (RA) Pulse Ox Interpretation: Normal Medical Decision Making Medical Decision Making: Time: 1455 Initial impression: Left arm pain differential include cervical radiculopathy vs neuropathy Initial plan: --EKG --Cyclobenzaprine 10 mg PO --Morphine 4 mg IV --Cervical Spine CT Time: 1606 --Cervical Spine CT FINDINGS: VERTEBRAE: No fracture. Normal alignment. No destructive bony lesion. DISCS/SPINAL CANAL/NEURAL FORAMINA: Multilevel disc space narrowing with osteophytic ridging, uncal vertebral hypertrophy and disc osteophyte complexes causing lower cervical central canal narrowing. PARASPINAL SOFT TISSUES: Unremarkable. OTHER FINDINGS: Nonspecific patchy bilateral upper lobe opacities. IMPRESSION: Degenerative changes of the cervical spine. Nonspecific patchy bilateral upper lobe opacities may be infectious/ inflammatory in etiology among other considerations. Clinical correlation is recommended. Three month CT follow-up can be obtained to assess for resolution/ stability. --Upon reevaluation, patient improved after first dose of morphine. Time: 1639 --Morphine 4 mg IV Time: 1728 --Morphine 4 mg IV Time: 1739 --Patient was explained that she could not be prescribed for an controlled medications because shes on pain management. Patient understood and is agreeable with discharge today. Upon provider reevaluation patient is feeling better, is medically stable, and requires no further treatment in the ED at this time. Patient will be discharged home Counseling was provided and all questions were answered regarding diagnosis and need for follow up with Dr. Mikey Dan MD. There is agreement to discharge plan. Return if symptoms persist or worsen. Clinical Impression: Cervical radiculopathy and pulmonary nodule Scribe Attestation: Documented by Clover Alvarado, acting as a scribe for Mindy Sims MD Provider Scribe Attestation: All medical record entries made by the Scribe were at my direction and personally dictated by me. I have reviewed the chart and agree that the record accurately reflects my personal performance of the history, physical exam, medical decision making, and the department course for this patient. I have also personally directed, reviewed, and agree with the discharge instructions and disposition. Disposition - Clinical Impression Clinical Impression: Cervical radiculopathy, Pulmonary nodule - Patient ED Disposition Is Patient to be Admitted: No Doctor Will See Patient In The: Office Counseled Patient/Family Regarding: Studies Performed, Diagnosis, Need For Followup - Disposition Referrals: Mikey Dan MD [Staff Provider] - Disposition: Routine/Home Disposition Time: 17:39 Condition: STABLE Additional Instructions: Follow up with your PCP in 2-3 days. Instructions: Cervical Radiculopathy (ED), Pulmonary Nodules (ED)
--- NOTE | 2017-04-01 08:06 | CARD ---
APPROVED REPORT EKG Measurement Heart [id number] CA [id number] <Conclusion> Normal sinus rhythm Normal ECG
== END 2017-03-31 18:00 | disposition home or self-care (01) ==
LOC: H.ER 14:04
DX: M54.12 Radiculopathy, cervical region (principal); R91.1 Solitary pulmonary nodule; M54.5 Low back pain; E11.9 Type 2 diabetes mellitus without complications; Z79.84 Long term (current) use of oral hypoglycemic drugs; E78.00 Pure hypercholesterolemia, unspecified; F32.9 Major depressive disorder, single episode, unspecified; F41.9 Anxiety disorder, unspecified; I10 Essential (primary) hypertension; J43.9 Emphysema, unspecified; M47.22 Other spondylosis with radiculopathy, cervical region
CPT/HCPCS: 72125; 93005; 96374; 96376; 99283; J2270

== ENCOUNTER 2017-03-31 23:41 | Emergency (ER) | payer MEDICARE ==
[2017-03-31 23:50] VITALS: BP 126/77; PULSE 109; RESP 18; TEMP 97.7; O2SAT 95
--- NOTE | 2017-04-01 00:17 | ED PDOC ---
Upper Extremity Pain/Injury Time Seen by Provider: 04/01/17 00:03 Chief Complaint (Nursing): Upper Extremity Problem/Injury Chief Complaint (Provider): arm pain History Per: Patient Past Medical History Vital Signs: Last Vital Signs Temp 97.7 F 03/31/17 23:46 Pulse 109 H 03/31/17 23:46 Resp 18 03/31/17 23:46 BP 126/77 03/31/17 23:46 Pulse Ox 95 03/31/17 23:46 - Medical History PMH: Anxiety, Back Problems, Depression, Diabetes, Emphysema, HTN, Hypercholesterolemia, Hyperlipidemia - Home Medications Home Medications: Ambulatory Orders Medication Instructions Recorded DULoxetine [Cymbalta] 60 mg PO DAILY 09/03/15 Fenofibrate [Tricor] 135 mg PO DAILY 09/03/15 Gabapentin [Neurontin] 600 mg PO DAILY 09/03/15 MetFORMIN [glucoPHAGE] 1,000 mg PO DAILY 09/03/15 Mirtazapine [Remeron] 15 mg PO DAILY 09/03/15 Rosuvastatin Calcium 2.5 [Crestor] 2.5 mg PO BID 09/03/15 Buspirone HCl 15 mg PO BID 06/28/16 Celecoxib [celeBREX] 100 mg PO BID 06/28/16 Esomeprazole Magnesium [Nexium] 40 mg PO DAILY 06/28/16 Ibuprofen [Motrin Tab] 800 mg PO Q8 PRN #30 tab 09/27/16 Levofloxacin [Levaquin] 500 mg PO DAILY #7 tablet 09/27/16 Lidocaine 5% [Lidoderm] 1 ea TD DAILY #30 patch 09/27/16 Prednisone 50 mg PO DAILY #5 tablet 09/27/16 - Allergies Allergies/Adverse Reactions: Allergies Allergy/AdvReac Type Severity Reaction Status Date / Time No Known Allergies Allergy Verified 07/14/16 11:13 - ECG O2 Sat by Pulse Oximetry: 95 Disposition - Disposition
--- NOTE | 2017-04-01 00:52 | ED PDOC ---
Upper Extremity Pain/Injury Time Seen by Provider: 04/01/17 00:03 Chief Complaint (Nursing): Upper Extremity Problem/Injury Chief Complaint (Provider): left arm pain History Per: Patient Additional Complaint(s): Patient was seen in ED earlier today for left arm pain. She had CT cervical spine completed along with labs and EKG. Patient was given a total of 12 mg of IV morphine for pain relief along with toradol which she states never helped her pain. She returns tonight as she still has pain to left arm. Patient normally takes percocet and fentanyl patches for chronic back pain but she states she lost her patches and cannot fill her next rx percocet until FridayApril 11. Patient is requesting more pain meds at this time. She denies any chest pain, SOB or LEWIS. Past Medical History Reviewed: Historical Data, Nursing Documentation, Vital Signs Vital Signs: Last Vital Signs Temp 97.7 F 03/31/17 23:46 Pulse 109 H 03/31/17 23:46 Resp 18 03/31/17 23:46 BP 126/77 03/31/17 23:46 Pulse Ox 95 04/01/17 00:17 - Medical History PMH: Anxiety, Back Problems, Depression, Diabetes, Emphysema, HTN, Hypercholesterolemia, Hyperlipidemia - Family History Family History: States: No Known Family Hx - Living Arrangements Living Arrangements: With Family - Social History Current smoker - smoking cessation education provided: Yes Alcohol: None Drugs: Denies - Home Medications Home Medications: Ambulatory Orders Medication Instructions Recorded DULoxetine [Cymbalta] 60 mg PO DAILY 09/03/15 Fenofibrate [Tricor] 135 mg PO DAILY 09/03/15 Gabapentin [Neurontin] 600 mg PO DAILY 09/03/15 MetFORMIN [glucoPHAGE] 1,000 mg PO DAILY 09/03/15 Mirtazapine [Remeron] 15 mg PO DAILY 09/03/15 Rosuvastatin Calcium 2.5 [Crestor] 2.5 mg PO BID 09/03/15 Buspirone HCl 15 mg PO BID 06/28/16 Celecoxib [celeBREX] 100 mg PO BID 06/28/16 Esomeprazole Magnesium [Nexium] 40 mg PO DAILY 06/28/16 Ibuprofen [Motrin Tab] 800 mg PO Q8 PRN #30 tab 09/27/16 Levofloxacin [Levaquin] 500 mg PO DAILY #7 tablet 09/27/16 Lidocaine 5% [Lidoderm] 1 ea TD DAILY #30 patch 09/27/16 Prednisone 50 mg PO DAILY #5 tablet 09/27/16 - Allergies Allergies/Adverse Reactions: Allergies Allergy/AdvReac Type Severity Reaction Status Date / Time No Known Allergies Allergy Verified 07/14/16 11:13 Review of Systems ROS Statement: Except As Marked, All Systems Reviewed And Found Negative Musculoskeletal: Positive for: Other (left arm pain) Physical Exam - Reviewed Nursing Documentation Reviewed: Yes Vital Signs Reviewed: Yes - Physical Exam Appears: Positive for: Well, Non-toxic, No Acute Distress Skin: Negative for: Rash Eye Exam: Positive for: Normal appearance Neck: Positive for: Pain On Movement Of Neck Cardiovascular/Chest: Positive for: Regular Rate, Rhythm Respiratory: Positive for: Normal Breath Sounds Extremity: Positive for: Other (mild tenderness left upper arm, full rom with pain, strong left hand envelope maker) Neurologic/Psych: Positive for: Alert, Oriented - ECG O2 Sat by Pulse Oximetry: 95 Pulse Ox Interpretation: Normal Medical Decision Making Medical Decision Makin56 year old with persistent left arm pain, patient was seen earlier today in ED for same. Previous records reviewed in detail by music writer. Plan: 4 mg IV morphine 30 mg IV toradol 125 mg IV solumedrol X-ray left shoulder ordered but patient refused x-ray Just after receiving pain meds, patient asked to leave. She was advised to follow up with her machine paint mixer JOE. Disposition - Clinical Impression Clinical Impression: Left arm pain - Patient ED Disposition Is Patient to be Admitted: No Counseled Patient/Family Regarding: Diagnosis, Need For Followup - Disposition Referrals: Michelle Vega MD [Medical Doctor] - Disposition: Routine/Home Disposition Time: : Condition: STABLE Additional Instructions: Follow up with your machine paint mixer as soon as possible. Instructions: Arm Pain (ED) Forms: [employer] (Kiswahili)
== END 2017-04-01 01:30 | disposition home or self-care (01) ==
LOC: H.ER 23:41
DX: M79.602 Pain in left arm (principal); E11.9 Type 2 diabetes mellitus without complications; Z79.84 Long term (current) use of oral hypoglycemic drugs; E78.00 Pure hypercholesterolemia, unspecified; F17.200 Nicotine dependence, unspecified, uncomplicated; F32.9 Major depressive disorder, single episode, unspecified; F41.9 Anxiety disorder, unspecified; I10 Essential (primary) hypertension; J43.9 Emphysema, unspecified
CPT/HCPCS: 72125; 93005; 96374; 96375; 96376; 99283; J1885; J2270; J2930